=== PATIENT | male | born 1990 | race African-American/Black ===

== ENCOUNTER 2017-07-17 06:55 | Emergency (ER) | payer SELFPAY ==
[~2017-07-17] VITALS: Ht 160 cm; Wt 64.3 kg
[2017-07-17] MEDS ORDERED: KETOROLAC 60MG/2ML VIAL IM ONE (08:15)
[2017-07-17 09:38] VITALS: BP 139/89
== END 2017-07-17 09:39 | disposition home or self-care (01) ==
LOC: ER 07:40
DX: M62.838 Other muscle spasm (principal); M54.5 Low back pain; F12.10 Cannabis abuse, uncomplicated; V89.2XXA Person injured in unspecified motor-vehicle accident, traffic, initial encounter; Y93.89 Activity, other specified; Y92.89 Other specified places as the place of occurrence of the external cause; Y99.8 Other external cause status
CPT/HCPCS: 96372; 99283; J1885